=== PATIENT | female | born 1995 | race Caucasian/White ===

== ENCOUNTER 2016-06-20 20:26 | Observation (INO) | payer OTHER ==
[2016-06-20] MEDS ORDERED: Ondansetron 4 MG/2 ML SDV IVPUSH ONE (21:11)
[2016-06-20] MEDS ORDERED: Sodium Chloride 0.9% 1,000 ML IV ONE ×2 (21:11→22:49)
[2016-06-20] MEDS ORDERED: Sodium Chloride 0.9% 2.5 ML Syringe FLUSH PRN (21:12)
[2016-06-20] MEDS ORDERED: Sodium Chloride 0.9% 10 ML Syringe FLUSH PRN (21:12)
[2016-06-20 21:52] LABS: CHLORIDE,CL 105 mmol/L (98-110); SODIUM,NA 141 mmol/L (136-146)
[2016-06-20] MEDS ORDERED: Iopamidol 755 MG/ML 500 ML Multipack Bottle IVPUSH STA (22:35)
[2016-06-20] MEDS ORDERED: HYDROmorphone 1 MG/ML Syringe IV ONE (22:48)
--- NOTE | 2016-06-20 23:40 | EDM.PDOC ---
ED HPI GI/ABDOMINAL - General Chief Complaint: Abdominal Pain Stated Complaint: STOMACH PAIN Time Seen by Provider: 06/20/16 21:52 Source of Information: Reports: Patient History Limitations: Reports: No limitations - History of Present Illness INITIAL COMMENTS - FREE TEXT/NARRATIVE: HISTORY AND PHYSICAL: History of present illness: [21-year-old female not currently and no chronic abdominal problems now presents emergent department complaining of sudden onset of right lower quadrant pain earlier tonight. Review of systems: As per history of present illness and below otherwise all systems reviewed and negative. Past medical history: As per history of present illness and as reviewed below otherwise noncontributory. Surgical history: As per history of present illness and as reviewed below otherwise noncontributory. Social history: No reported history of drug or alcohol abuse. Family history: As per history of present illness and as reviewed below otherwise noncontributory. Physical exam: 21-year-old female smiling alert no acute distress appears in mild discomfort complaining of right lower quadrant pain HEENT: Atraumatic, normocephalic, pupils reactive, negative for conjunctival pallor or scleral icterus, mucous membranes moist, throat clear, neck supple, nontender, trachea midline. Lungs: Clear to auscultation, breath sounds equal bilaterally, chest nontender. Heart: S1S2, regular, negative for clicks, rubs, or JVD. Abdomen: Soft, nondistended, tenderness right lower quadrant no guarding or rebound. Negative for masses or hepatosplenomegaly. Negative for costovertebral tenderness. Pelvis: Stable nontender. Genitourinary: Deferred. Rectal: Deferred. Extremities: Atraumatic, negative for cords or calf pain. Neurovascular unremarkable. Neuro: Awake, alert, oriented. Cranial nerves II through XII unremarkable. Cerebellum unremarkable. Motor and sensory unremarkable throughout. Exam nonfocal. Diagnostics: [CT shows what appears to be hemorrhagic ovarian cyst with right adnexal mass and free fluid in the pelvis. In the setting of a patient who is not no possibility of ectopic] Therapeutics: [IV fluids and analgesia] Impression: [Hemorrhagic ovarian cyst Pelvic pain] Plan: [Non. Right adnexal as cystic structure with free fluid consistent with hemorrhagic ovarian cyst. Hemodynamically stable. Case discussed with Dr. 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 She evaluated the patient in the emergency department and request observation admission to her service to demonstrate hemodynamic stability in the setting of presumed right ovarian cyst with intra-pelvic bleeding. Patient is well-appearing and continues to be hemodynamically stable. Off sterilely admission Definitive disposition and diagnosis as appropriate pending reevaluation and review of above. - Related Data Allergies/ADRs: Allergies Allergy/AdvReac Type Severity Reaction Status Date / Time latex Allergy Other Verified 06/20/16 21:00 pineapple Allergy Swelling Verified 07/24/14 09:34 Home Meds: Home Meds Norgestrel-Ethinyl Estradiol [Cryselle-28 Tablet] 1 tab PO DAILY 07/24/14 [ History] Past Medical History - Past Health History Medical/Surgical History: Denies Medical/Surgical History - Infectious Disease History Infectious Disease History: Reports: Chicken pox - Past Surgical History GI Surgical History: Reports: Cholecystectomy Social & Family History - Family History Family Medical History: Noncontributory - Tobacco Use Smoking Status *Q: Never Smoker Second Hand Smoke Exposure: No - Caffeine Use Caffeine Use: Reports: None - Alcohol Use Days Per Week of Alcohol Use: 0 Number of Drinks Per Day: 0 Total Drinks Per Week: 0 - Recreational Drug Use Recreational Drug Use: No Drug Use in Last 12 Months: No ED ROS GENERAL - Review of Systems Review Of Systems: See Below (History of present illness) ED EXAM, GI/ABD - Physical Exam Exam: See Below (History of present illness) Course - Vital Signs Last Recorded V/S: Last Vital Signs Temp 36.8 C 06/20/16 21:53 Pulse 74 06/20/16 21:53 Resp 18 06/20/16 20:55 BP 124/68 06/20/16 21:53 Pulse Ox 99 06/20/16 20:55 - Orders/Labs/Meds Orders: Active Orders 24 hr Category Date Time Status Admission Status [Patient Status] [ADT] Stat ADT 06/20/16 23:55 Active NPO Now [Nothing per Oral Now Diet] [DIET] Diet 06/20/16 Breakfast Active Abdomen Pelvis w Cont [CT] Stat Exams 06/20/16 21:12 Taken CULTURE URINE [RM] Stat Lab 06/20/16 21:10 Received Sodium Chloride 0.9% [Normal Saline] 1,000 ml Med 06/21/16 00:07 Active IV .Bolus Sodium Chloride 0.9% [Saline Flush] Med 06/20/16 21:12 Active 10 ml FLUSH ASDIRECTED PRN Sodium Chloride 0.9% [Saline Flush] Med 06/20/16 21:12 Active 2.5 ml FLUSH ASDIRECTED PRN Saline Lock Insert [OM.PC] Stat Oth 06/20/16 21:12 Ordered Medication Orders Sodium Chloride (Normal Saline) 1,000 mls @ 150 mls/hr IV .Bolus ONE Stop: 06/21/16 06:46 Sodium Chloride (Saline Flush) 10 ml FLUSH ASDIRECTED PRN PRN Reason: Keep Vein Open Sodium Chloride (Saline Flush) 2.5 ml FLUSH ASDIRECTED PRN PRN Reason: Keep Vein Open Labs: Laboratory Tests 06/20/16 06/20/16 06/20/16 Range/Units 21:10 21:10 21:10 WBC (4.0-11.0) K/uL RBC (4.30-5.90) M/uL Hgb (12.0-16.0) g/dL Hct (36.0-46.0) % MCV (80.0-98.0) fL MCH (27.0-32.0) pg MCHC (31.0-37.0) g/dL RDW Std Deviation (28.0-62.0) fl RDW Coeff of Mega (11.0-15.0) % Plt Count (150-400) K/uL MPV (7.40-12.00) fL Neut % (Auto) (48.0-80.0) % Lymph % (Auto) (16.0-40.0) % [place] % (Auto) (0.0-15.0) % Eos % (Auto) (0.0-7.0) % Baso % (Auto) (0.0-1.5) % Neut # (Auto) (1.4-5.7) K/uL Lymph # (Auto) (0.6-2.4) K/uL [place] # (Auto) (0.0-0.8) K/uL Eos # (Auto) (0.0-0.7) K/uL Baso # (Auto) (0.0-0.1) K/uL Nucleated RBC % /100WBC Nucleated RBCs # K/uL Sodium (136-146) mmol/L Potassium (3.5-5.1) mmol/L Chloride (98-110) mmol/L Carbon Dioxide (21-31) mmol/L BUN (6.0-23.0) mg/dL Creatinine (0.6-1.5) mg/dL Est Cr Clr Drug Dosing mL/min Estimated GFR (MDRD) ml/min Glucose (60-110) mg/dL Calcium (8.8-10.8) mg/dL Total Bilirubin (0.1-1.5) mg/dL AST (5-40) IU/L ALT (8-54) IU/L Alkaline Phosphatase (40-150) Total Protein (6.0-8.0) g/dL Albumin (3.5-5.0) g/dL Globulin (2.0-3.5) g/dL Albumin/Globulin Ratio (1.3-2.8) Lipase (7-80) U/L Urine Color YELLOW Urine Appearance CLEAR Urine pH 6.0 (5.0-8.0) Ur Specific [place] 1.025 (1.001-1.035) Urine Protein NEGATIVE (NEGATIVE) mg/dL Urine Glucose (UA) NEGATIVE (NEGATIVE) mg/dL Urine Ketones NEGATIVE (NEGATIVE) mg/dL Urine Occult Blood NEGATIVE (NEGATIVE) Urine Nitrite NEGATIVE (NEGATIVE) Urine Bilirubin NEGATIVE (NEGATIVE) Urine Urobilinogen 0.2 (<2.0) EU/dL Ur Leukocyte Esterase NEGATIVE (NEGATIVE) Urine RBC 0-1 (0-2/HPF) Urine WBC 0-2 (0-5/HPF) Ur Epithelial Cells FEW (NONE-FEW) Urine Bacteria FEW (NEGATIVE) Urine HCG, Qual NEGATIVE (NEGATIVE) Urine Opiates Screen NEGATIVE (NEGATIVE) Ur Oxycodone Screen NEGATIVE (NEGATIVE) Urine Methadone Screen NEGATIVE (NEGATIVE) Ur Barbiturates Screen NEGATIVE (NEGATIVE) Ur Phencyclidine Scrn NEGATIVE (NEGATIVE) Ur Amphetamine Screen NEGATIVE (NEGATIVE) U Methamphetamines Scrn NEGATIVE (NEGATIVE) U Benzodiazepines Scrn NEGATIVE (NEGATIVE) U Cocaine Metab Screen NEGATIVE (NEGATIVE) U Marijuana (THC) Screen NEGATIVE (NEGATIVE) 06/20/16 06/20/16 Range/Units 21:15 21:15 WBC 11.35 H (4.0-11.0) K/uL RBC 4.85 (4.30-5.90) M/uL Hgb 13.9 (12.0-16.0) g/dL Hct 41.2 (36.0-46.0) % MCV 84.9 (80.0-98.0) fL MCH 28.7 (27.0-32.0) pg MCHC 33.7 (31.0-37.0) g/dL RDW Std Deviation 38.7 (28.0-62.0) fl RDW Coeff of Mega 13 (11.0-15.0) % Plt Count 300 (150-400) K/uL MPV 9.40 (7.40-12.00) fL Neut % (Auto) 70.8 (48.0-80.0) % Lymph % (Auto) 22.4 (16.0-40.0) % [place] % (Auto) 5.6 (0.0-15.0) % Eos % (Auto) 1.0 (0.0-7.0) % Baso % (Auto) 0.2 (0.0-1.5) % Neut # (Auto) 8.0 H (1.4-5.7) K/uL Lymph # (Auto) 2.5 H (0.6-2.4) K/uL [place] # (Auto) 0.6 (0.0-0.8) K/uL Eos # (Auto) 0.1 (0.0-0.7) K/uL Baso # (Auto) 0.0 (0.0-0.1) K/uL Nucleated RBC % 0.0 /100WBC Nucleated RBCs # 0 K/uL Sodium 141 (136-146) mmol/L Potassium 3.9 (3.5-5.1) mmol/L Chloride 105 (98-110) mmol/L Carbon Dioxide 23 (21-31) mmol/L BUN 12 (6.0-23.0) mg/dL Creatinine 0.8 (0.6-1.5) mg/dL Est Cr Clr Drug Dosing 105.01 mL/min Estimated GFR (MDRD) > 60.0 ml/min Glucose 100 (60-110) mg/dL Calcium 9.7 (8.8-10.8) mg/dL Total Bilirubin 0.4 (0.1-1.5) mg/dL AST 17 (5-40) IU/L ALT 19 (8-54) IU/L Alkaline Phosphatase 47 (40-150) Total Protein 7.7 (6.0-8.0) g/dL Albumin 4.2 (3.5-5.0) g/dL Globulin 3.5 (2.0-3.5) g/dL Albumin/Globulin Ratio 1.2 L (1.3-2.8) Lipase 39 (7-80) U/L Urine Color Urine Appearance Urine pH (5.0-8.0) Ur Specific [place] (1.001-1.035) Urine Protein (NEGATIVE) mg/dL Urine Glucose (UA) (NEGATIVE) mg/dL Urine Ketones (NEGATIVE) mg/dL Urine Occult Blood (NEGATIVE) Urine Nitrite (NEGATIVE) Urine Bilirubin (NEGATIVE) Urine Urobilinogen (<2.0) EU/dL Ur Leukocyte Esterase (NEGATIVE) Urine RBC (0-2/HPF) Urine WBC (0-5/HPF) Ur Epithelial Cells (NONE-FEW) Urine Bacteria (NEGATIVE) Urine HCG, Qual (NEGATIVE) Urine Opiates Screen (NEGATIVE) Ur Oxycodone Screen (NEGATIVE) Urine Methadone Screen (NEGATIVE) Ur Barbiturates Screen (NEGATIVE) Ur Phencyclidine Scrn (NEGATIVE) Ur Amphetamine Screen (NEGATIVE) U Methamphetamines Scrn (NEGATIVE) U Benzodiazepines Scrn (NEGATIVE) U Cocaine Metab Screen (NEGATIVE) U Marijuana (THC) Screen (NEGATIVE) Meds: Medications Generic Name Dose Route Start Last Admin Trade Name Freq PRN Reason Stop Dose Admin Sodium Chloride 1,000 mls @ 150 mls/hr 06/21/16 00:07 Normal Saline IV 06/21/16 06:46 .Bolus ONE Sodium Chloride 10 ml 06/20/16 21:12 Saline Flush FLUSH ASDIRECTED PRN Keep Vein Open Sodium Chloride 2.5 ml 06/20/16 21:12 Saline Flush FLUSH ASDIRECTED PRN Keep Vein Open Discontinued Medications Generic Name Dose Route Start Last Admin Trade Name Freq PRN Reason Stop Dose Admin Hydromorphone HCl 0.5 mg 06/20/16 22:48 06/20/16 22:53 Dilaudid IV 06/20/16 22:49 0.5 mg ONETIME ONE Administration Sodium Chloride 1,000 mls @ 999 mls/hr 06/20/16 21:11 06/20/16 21:29 Normal Saline IV 06/20/16 22:11 999 mls/hr STAT ONE Administration Sodium Chloride 1,000 mls @ 999 mls/hr 06/20/16 22:49 06/20/16 22:51 Normal Saline IV 06/20/16 23:49 999 mls/hr STAT ONE Administration Iopamidol 90 ml 06/20/16 22:35 06/20/16 22:36 Isovue Multipack-370 (76%) IVPUSH 06/20/16 22:36 90 ml ONETIME STA Administration Ondansetron HCl 4 mg 06/20/16 21:11 06/20/16 21:29 Zofran IVPUSH 06/20/16 21:12 4 mg ONETIME ONE Administration Departure - Departure Time of Disposition: 23:51 Disposition: Refer to Observation Condition: fair Clinical Impression: Hemorrhagic cyst of right ovary Referrals: PCP,None [Primary Care Provider] - Forms: ED Department Discharge - My Orders Last 24 Hours: My Active Orders 06/20/16 23:55 Admission Status [Patient Status] [ADT] Stat 06/20/16 Breakfast NPO Now [Nothing per Oral Now Diet] [DIET] 06/21/16 00:07 Sodium Chloride 0.9% [Normal Saline] 1,000 ml IV .Bolus - Assessment/Plan Last 24 Hours: My Active Orders 06/20/16 23:55 Admission Status [Patient Status] [ADT] Stat 06/20/16 Breakfast NPO Now [Nothing per Oral Now Diet] [DIET] 06/21/16 00:07 Sodium Chloride 0.9% [Normal Saline] 1,000 ml IV .Bolus
[2016-06-21] MEDS ORDERED: Sodium Chloride 0.9% 1,000 ML IV ONE (00:07)
[2016-06-21] MEDS: Acetaminophen/oxyCODONE 325-5 MG Tab PO PRN ×2 (02:12→07:39)
[2016-06-21] MEDS ORDERED: HYDROmorphone 1 MG/ML Syringe IVPUSH PRN (02:45)
[2016-06-21] MEDS ORDERED: Ibuprofen 800 MG Tab PO PRN (02:46)
[2016-06-21] MEDS ORDERED: Ondansetron 4 MG/2 ML SDV IVPUSH PRN (02:47)
[2016-06-21] MEDS ORDERED: Lactated Ringers 1,000 ML IV SCH (04:45)
--- NOTE | 2016-06-21 05:45 | HP ---
DATE OF : 1995 PRIMARY CARE PHYSICIAN: Kristi PCP PRESENTING COMPLAINT: Right lower abdominal pain. HISTORY: Cl is a 21-year-old, nulliparous patient who presented to the ER late last night complaining of sudden onset right lower quadrant pain at about 6:00 p.m in the evening. She reports that the pain was so severe that it made her double over, nauseated with an episode of vomiting. The pain remained constant with similar intensity, non- radiating aggravated with movement, which necessitating her presentation to the ER. She denied vaginal bleeding, abnormal vaginal discharge. Denied fever or chills. No associated urinary symptoms or change in bowel habits. The patient gets a period every three months on extended cycle OCP, her last menstrual period was at the end of May. In the ER, her urine Hcg was negative. She received a dose of Dilaudid 0.5 mg and then had a CT abdominopelvic, which showed 4.3cm cystic lesion in the right adnexa with small to moderate amount of free fluid in the cul-de-sac. The densities within the fluid were suggestive of blood and the appearance of this cystic lesion was suggestive of hemorrhagic cyst, possibly ruptured. GYNECOLOGICAL HISTORY: Cycles every three months on extended cycle pill. Sexually active No history of STDs. PAST MEDICAL HISTORY: Chickenpox in childhood SURGICAL HISTORY: Cholecystectomy, laparoscopic in 2015. SOCIAL HISTORY: Student, nonsmoker, denies use of illicit drugs or alcohol intake. FAMILY HISTORY: Mother with Crohn disease. MEDICATION: OCP. ALLERGY: Latex. Pineapple LABORATORY DATA: WBC of 11.3, hemoglobin of 13.9 and hematocrit of 41.2. Platelets were 300. CMP was normal. Urinalysis was negative. Urine Hcg : Negative PHYSICAL EXAMINATION: GENERAL: Patient was alert, no acute distress bu appears to be in some discomfort especially with movement. LUNGS: Clear to auscultation bilaterally. HEART: S 1 and 2, regular rhythm and rate. ABDOMEN: Soft, nondistended, tenderness on the right lower quadrant with voluntary guarding, but no rebound tenderness. No masses were palpable. : Speculum exam showed no abnormal vaginal discharge and bleeding. Bimanual: Mobile anteverted non-tender uterus less than six weeks size, but with movement patient complains of right-sided tenderness. No cervical motion tenderness. Fullness in the right adnexa with tenderness palpable. EXTREMITIES: No edema. ASSESSMENT: 21 yo non- patient with ruptured right hemorrhagic ovarian cyst. Clinically hemodynamically stable PLAN: We will keep the patient in-house for observation overnight. - Pelvic ultrasound tomorrow morning and repeat CBC. - Keep n.p.o. continue pain management and IVF. If the patient remains hemodynamically stable, we will plan discharge on conservative management. Discussed above management with the patient and family. All questions were answered. [place]ODROW / ZAKI /[id number] ZUHAIR
[2016-06-21 09:16] VITALS: BP 113/62
--- NOTE | 2016-06-21 11:24 | PCM.PN ---
- General Info Date of Service: 06/21/16 Functional Status: Reports: pain controlled, ambulating, urinating - Review of Systems General: Denies: Fever, Weakness, Fatigue, Malaise, Chills Pulmonary: Denies: shortness of breath, pleuritic chest pain, cough Cardiovascular: Denies: Chest Pain, Palpitations, Dyspnea on Exertion Gastrointestinal: Denies: Abdominal pain Genitourinary: Denies: dysuria, frequency, flank pain Neurological: Denies: Confusion, Headache Psychiatric: Denies: depression, mood lability, anxiety - Patient Data Vitals - most recent: Last Vital Signs Temp 36.6 C 06/21/16 08:00 Pulse 86 06/21/16 08:00 Resp 16 06/21/16 08:00 BP 113/62 06/21/16 08:00 Pulse Ox 97 06/21/16 08:00 Weight - most recent: 167 lb 8 oz I&O - last 24 hours: Intake & Output 06/20/16 06/21/16 06/21/16 22:59 06:59 14:59 Intake Total 20 Output Total 500 Balance -480 Lab Results last 24 hrs: Laboratory Results - last 24 hr 06/21/16 Range/Units 05:55 WBC 7.59 (4.0-11.0) K/uL RBC 4.26 L (4.30-5.90) M/uL Hgb 12.2 (12.0-16.0) g/dL Hct 36.4 (36.0-46.0) % MCV 85.4 (80.0-98.0) fL MCH 28.6 (27.0-32.0) pg MCHC 33.5 (31.0-37.0) g/dL RDW Std Deviation 39.2 (28.0-62.0) fl RDW Coeff of Mega 13 (11.0-15.0) % Plt Count 229 (150-400) K/uL MPV 9.30 (7.40-12.00) fL Neut % (Auto) 60.6 (48.0-80.0) % Lymph % (Auto) 32.1 (16.0-40.0) % [place] % (Auto) 6.1 (0.0-15.0) % Eos % (Auto) 1.1 (0.0-7.0) % Baso % (Auto) 0.1 (0.0-1.5) % Neut # (Auto) 4.6 (1.4-5.7) K/uL Lymph # (Auto) 2.4 (0.6-2.4) K/uL [place] # (Auto) 0.5 (0.0-0.8) K/uL Eos # (Auto) 0.1 (0.0-0.7) K/uL Baso # (Auto) 0.0 (0.0-0.1) K/uL Nucleated RBC % 0.0 /100WBC Nucleated RBCs # 0 K/uL Med Orders - Current: Current Medications Hydromorphone HCl (Dilaudid) 0.5 mg IVPUSH Q2H PRN PRN Reason: Pain (severe 7-10) Lactated Ringer's (Ringers, Lactated) 1,000 mls @ 125 mls/hr IV ASDIRECTED CELESTE Last Admin: 06/21/16 07:18 Dose: 125 mls/hr Ibuprofen (Motrin) 800 mg PO Q6H PRN PRN Reason: Abdominal Pain Ondansetron HCl (Zofran) 4 mg IVPUSH Q6H PRN PRN Reason: Nausea/Vomiting Oxycodone/Acetaminophen (Percocet 325-5 Mg) 1 - 2 tab PO Q4H PRN PRN Reason: Pain Last Admin: 06/21/16 07:39 Dose: 2 tab Sodium Chloride (Saline Flush) 10 ml FLUSH ASDIRECTED PRN PRN Reason: Keep Vein Open Sodium Chloride (Saline Flush) 2.5 ml FLUSH ASDIRECTED PRN PRN Reason: Keep Vein Open Discontinued Medications Hydromorphone HCl (Dilaudid) 0.5 mg IV ONETIME ONE Stop: 06/20/16 22:49 Last Admin: 06/20/16 22:53 Dose: 0.5 mg Sodium Chloride (Normal Saline) 1,000 mls @ 999 mls/hr IV STAT ONE Stop: 06/20/16 22:11 Last Admin: 06/20/16 21:29 Dose: 999 mls/hr Sodium Chloride (Normal Saline) 1,000 mls @ 999 mls/hr IV STAT ONE Stop: 06/20/16 23:49 Last Admin: 06/20/16 22:51 Dose: 999 mls/hr Sodium Chloride (Normal Saline) 1,000 mls @ 150 mls/hr IV .Bolus ONE Stop: 06/21/16 06:46 Last Admin: 06/21/16 00:20 Dose: 150 mls/hr Iopamidol (Isovue Multipack-370 (76%)) 90 ml IVPUSH ONETIME STA Stop: 06/20/16 22:36 Last Admin: 06/20/16 22:36 Dose: 90 ml Ondansetron HCl (Zofran) 4 mg IVPUSH ONETIME ONE Stop: 06/20/16 21:12 Last Admin: 06/20/16 21:29 Dose: 4 mg - Exam General: alert, oriented, no acute distress HEENT: Pupils equal Lungs: Clear to auscultation, Normal respiratory effort Cardiovascular: Regular Rate, Regular Rhythm Abdomen: soft, no tenderness, no distension Extremities: no edema Skin: warm Psy/Mental Status: alert, normal affect, normal mood - Problem List & Annotations (1) Hemorrhagic cyst of right ovary SNOMED Code(s): 084957724 Code(s): N83.201 - UNSPECIFIED OVARIAN CYST, RIGHT SIDE Status: Acute Current Visit: Yes - Problem List Review Problem List Initiated/Reviewed/Updated: Yes - My Orders Last 24 Hours: My Active Orders 06/21/16 01:45 Acetaminophen/oxyCODONE [Percocet 325-5 MG] 1 - 2 tab PO Q4H PRN 06/21/16 01:55 CHLAMYDIA TRACHOMATIS/GC AMPLF Routine CULTURE GENITAL [RM] Routine 06/21/16 02:35 Pelvis Non OB Comp [US] Routine 06/21/16 02:45 HYDROmorphone [Dilaudid] 0.5 mg IVPUSH Q2H PRN 06/21/16 02:46 Ibuprofen [Motrin] 800 mg PO Q6H PRN 06/21/16 02:47 Ondansetron [Zofran] 4 mg IVPUSH Q6H PRN 06/21/16 04:45 Lactated Ringers [Ringers, Lactated] 1,000 ml IV ASDIRECTED 06/21/16 Breakfast NPO [Nothing Per Oral Diet] [DIET] - Assessment Assessment:: HD#1 admitted overnight for observation secondary to ruptured right hemorrhagic cyst Patient is feeling much better and remains hemodynamically stable, currently painfree (last PO nacortics was at 7am). WBC normal and Hgb stable at 12g/dl Pelvic sonogram showed a complex 3cm right ovarian cyst with small to moderate free fluid in the right adnexa. Apart from the cyst measurement being small, there is no significant change from CT scan - Plan Plan:: Sonogram findings reviewed with patient and her parents. Explained pathophysiology of ovarian cyst and resultant rupture Patient is clinically stable for discharge with pain medications Will need follow up sonogram in about 6 weeks (to check for resolution) except clinically indicated at her followup with me within the week Activities, pelvic rest, pain and infection precautions reviewed with patient Will follow up next week in the clinic- office will jonnathan her on Thursday with this appointment
--- NOTE | 2016-06-23 16:07 | CT ---
EXAM DATE: 06/20/16 PATIENT'S AGE: 21 Patient: ANDREY ROGERS Facility: [place], [place] Site . Site : 1995 Study: CT Abdomen/Pelvis W CONT [id number]/[id number] 10:37:06 PM Ordering Physician: Doctor Garcia Final Report: INDICATION: Abdominal pain in the right lower abdomen TECHNIQUE: CT abdomen and pelvis acquired with i.v. 90 mL Isovue 370. Coronal and sagittal reformats were obtained. COMPARISON: None FINDINGS: Lower chest: Unremarkable. Liver: Unremarkable. Spleen: Unremarkable. Pancreas: Unremarkable. Gallbladder and bile ducts: The patient is status post cholecystectomy. Kidneys: Unremarkable. No kidney or ureteral stones and no hydronephrosis seen. Adrenal glands: Unremarkable. GI tract: Unremarkable. The appendix is normal in appearance and size. And is seen retrocecal on images 93- 77. Vascular: Unremarkable. Lymph nodes: Unremarkable. Miscellaneous: Unremarkable. No pneumoperitoneum is seen. Small to moderate amount of pelvic ascites is noted. Ascites measures approximately 15 HU in density with the dependent aspect in the cul-de-sac measuring 36 HU. Pelvic Organs: There is a cystic lesion in the right adnexa measuring 4.3 cm in diameter. Bones: Unremarkable for age. IMPRESSION: 1. Large cystic lesion seen in the right adnexa with a small to moderate amount of pelvic fluid seen. The fluid has layering densities in the cul-de-sac which may be due to hemoperitoneum. Findings maybe due to hemorrhage from an ovarian cyst but correlation with beta HCG is recommended to exclude a ruptured ectopic . A copy of this report was faxed to the patient`s physician at the time of dictation. Dictated by Frandy Vega MD @ 06/20/2016 11:00:04 PM Dictated by: Frandy Vega MD @ 06/20/2016 23:00:25 (Electronic Signature) Report Signed by Proxy. ZUHAIR
--- NOTE | 2016-06-23 16:17 | US ---
EXAM DATE: 06/20/16 PATIENT'S AGE: 21 Patient: ANDREY ROGERS Facility: [place], [place] Site . Site : 1995 Study: US Pelvis [id number]/6/2017 4:14:49 AM Ordering Physician: Bekah Vazquez Final Report: INDICATION: Right lower quadrant pain. Negative beta HCG TECHNIQUE: Ultrasound pelvis transvaginal. COMPARISON: CT scan abdomen pelvis 06/20/2016. FINDINGS: Uterus: 7.0 centimeters x 3.6 centimeters x 4.2 centimeters. Normal echotexture of the myometrium. No masses. Endometrium: The endometrium measures 7 mm in thickness. No sign of endometrial mass or fluid. Right ovary: 4.7 centimeters x 5.0 centimeters x 5.4 centimeters. 3.0 centimeter complex right ovarian cyst. Normal arterial and venous blood flow. Left ovary: Not visualized. Cul-de-sac: Small a moderate amount of free fluid in the right adnexa possibly complex. IMPRESSION: A 3.0 centimeter complex right ovarian cyst with small amount of adjacent fluid possibly complex fluid. Followup recommended. Dictated by Zac Mathias MD @ 06/21/2016 4:30:21 AM Dictated by: Zac Mathias MD @ 06/21/2016 04:30:42 (Electronic Signature) Report Signed by Proxy. ZUHAIR
== END 2016-06-21 13:20 | disposition home or self-care (01) ==
LOC: MW.ED 20:26 → MW.MS 23:55 → UNDODISOB 06-21 03:13
PROVIDERS: ADMIT Obstetrics & Gynecology; ATTEND Obstetrics & Gynecology
DX: N83.201 Unspecified ovarian cyst, right side (principal); Z90.49 Acquired absence of other specified parts of digestive tract; Z91.018 Allergy to other foods; Z91.040 Latex allergy status
CPT/HCPCS: 36415; 74177; 76856; 80053; 80305; 81001; 81025; 83690; 85025; 87070; 87086; 87491; 87591; 96361; 96374; 96375; 99285; A9270; G0378; J1170; J2405; J7040; J7120; Q9967; 99283

== ENCOUNTER 2016-11-15 17:55 | Emergency (ER) | payer OTHER ==
[2016-11-15 18:26] VITALS: BP 126/76
--- NOTE | 2016-11-15 18:53 | EDM.PDOC ---
ED HPI GENERAL MEDICAL PROBLEM - General Chief Complaint: Eye Problems Stated Complaint: POSSIBLE PINK EYE/STREP THROAT Time Seen by Provider: 11/15/16 18:16 Source of Information: Reports: Patient History Limitations: Reports: No Limitations - History of Present Illness INITIAL COMMENTS - FREE TEXT/NARRATIVE: HISTORY AND PHYSICAL: History of present illness: Patient is a 21-year-old female who presents to the emergency room with complaints of sore throat 4 days and 24 hours of drainage to the right eye. Reports that her throat is been bothering her for approximately 4 days which has not improved regardless of using [id number] products. Patient noted that she had yellow/green drainage starting from her eye started a woke up with it matted shut. Denies any fever or chills. Denies any nausea, vomiting, abdominal pain, chest pain or shortness of breath. Review of systems: As per history of present illness and below otherwise all systems reviewed and negative. Past medical history: As per history of present illness and as reviewed below otherwise noncontributory. Surgical history: As per history of present illness and as reviewed below otherwise noncontributory. Social history: No reported history of drug or alcohol abuse. Family history: As per history of present illness and as reviewed below otherwise noncontributory. Physical exam: Gen.: Nontoxic appearing 21-year-old female. Well-developed and well-nourished. Able to speak in full sentences without shortness of breath. Alert and oriented HEENT: Atraumatic, normocephalic, pupils reactive, negative for conjunctival pallor or scleral icterus, scleral injection of the right with yellow discharge noted, mucous membranes moist, throat clear, neck supple, nontender, trachea midline. Right tympanic membrane is erythematous with dull light reflex. No bulging noted. Left TM is normal. Lungs: Clear to auscultation, breath sounds equal bilaterally, chest nontender. Heart: S1S2, regular rate and rhythm Abdomen: Soft, nondistended, nontender. Negative for masses or hepatosplenomegaly. Negative for costovertebral tenderness. Pelvis: Stable nontender. Genitourinary: Deferred. Rectal: Deferred. Extremities: Atraumatic, negative for cords or calf pain. Neurovascular unremarkable. Neuro: Awake, alert, oriented. Cranial nerves II through XII unremarkable. Cerebellum unremarkable. Motor and sensory unremarkable throughout. Exam nonfocal. Diagnostics: [] Therapeutics: [] Impression: Otitis media, right Bacterial conjunctivitis, right Plan: 1. Please take the antibiotics as prescribed. Perform good handwashing as we discussed. 2. An antibiotic have been prescribed for you for the otitis media which will also cover the pharyngitis. Take Tylenol and/or ibuprofen for pain and fever control. Please perform the salt water gargles that we discussed. 3. Follow-up with your primary care provider in the next 1-2 days. Return to the ED as needed as discussed Definitive disposition and diagnosis as appropriate pending reevaluation and review of above. Onset: Today right eye Pain Score (Numeric/FACES): 3 throat Pain Score (Numeric/FACES): 4 - Related Data Allergies Allergy/AdvReac Type Severity Reaction Status Date / Time pineapple Allergy Swelling Verified 11/15/16 18:21 Home Meds: Home Meds . [No Known Home Meds] 11/15/16 [History] Past Medical History - Past Health History Medical/Surgical History: Denies Medical/Surgical History - Infectious Disease History Infectious Disease History: Reports: Chicken Pox - Past Surgical History GI Surgical History: Reports: Cholecystectomy Social & Family History - Family History Family Medical History: Noncontributory Cardiac: Reports: High Cholesterol Endocrine/Metabolic: Reports: Diabetes, type II - Tobacco Use Smoking Status *Q: Never Smoker Second Hand Smoke Exposure: No - Caffeine Use Caffeine Use: Reports: None - Alcohol Use Days Per Week of Alcohol Use: 0 Number of Drinks Per Day: 0 Total Drinks Per Week: 0 - Recreational Drug Use Recreational Drug Use: No Drug Use in Last 12 Months: No ED ROS GENERAL - Review of Systems Review Of Systems: ROS reveals no pertinent complaints other than HPI. ED EXAM GENERAL W FULL EYE - Physical Exam Exam: See Below (See dictation) Course - Vital Signs Last Recorded V/S: Last Vital Signs Temp 36.6 C 11/15/16 17:55 Pulse 98 11/15/16 17:55 Resp 18 11/15/16 17:55 BP 126/76 11/15/16 17:55 Pulse Ox 98 11/15/16 17:55 Departure - Departure Time of Disposition: 18:53 Disposition: Home, Self-Care 01 Clinical Impression: Conjunctivitis Qualifiers: Conjunctivitis type: acute Acute conjunctivitis type: bacterial Laterality: right Qualified Code(s): H10.31 - Unspecified acute conjunctivitis, right eye Otitis media Qualifiers: Otitis media type: unspecified Chronicity: unspecified Laterality: right Qualified Code(s): H66.91 - Otitis media, unspecified, right ear - Discharge Information Referrals: PCP,None [Primary Care Provider] - Additional Instructions: My general discharge The following information is given to patients seen in the emergency department who are being discharged to home. This information is to outline your options for follow-up care. We provide all patients seen in our emergency department with a follow-up referral. The need for follow-up, as well as the timing and circumstances, are variable depending upon the specifics of your emergency department visit. If you don't have a primary care physician on staff, we will provide you with a referral. We always advise you to contact your personal physician following an emergency department visit to inform them of the circumstance of the visit and for follow-up with them and/or the need for any referrals to a consulting specialist. The emergency department will also refer you to a specialist when appropriate. This referral assures that you have the opportunity for follow-up care with a specialist. All of these measure are taken in an effort to provide you with optimal care, which includes your follow-up. Under all circumstances we always encourage you to contact your private physician who remains a resource for coordinating your care. When calling for follow-up care, please make the office aware that this follow-up is from your recent emergency room visit. If for any reason you are refused follow-up, please contact the [facility] Emergency Department at and asked to speak to the emergency department charge nurse. [facility] [address] [place] [id number] 1. Please take the eye antibiotics as prescribed. Perform good handwashing as we discussed. 2. An oral antibiotic have been prescribed for you for the otitis media which will also cover the pharyngitis. Take Tylenol and/or ibuprofen for pain and fever control. Please perform the salt water gargles that we discussed. 3. Follow-up with your primary care provider in the next 1-2 days. Return to the ED as needed as discussed
== END 2016-11-15 19:05 | disposition home or self-care (01) ==
LOC: MW.ED 17:55
DX: H66.91 Otitis media, unspecified, right ear (principal); H10.31 Unspecified acute conjunctivitis, right eye
CPT/HCPCS: 99282

== ENCOUNTER 2021-02-18 11:19 | Emergency (ER) | payer SELFPAY ==
[2021-02-18 13:42] LABS: BLOOD UREA NITROGEN,BUN 14 mg/dL (7.0-18.0); CARBON DIOXIDE,CO2 25.8 mmol/L (21.0-32.0); CHLORIDE,CL 104 mmol/L (98-107); GLUCOSE RANDOM 103 mg/dL (74-106); POTASSIUM,K 3.6 mmol/L (3.5-5.1); SODIUM,NA 141 mmol/L (136-145)
--- NOTE | 2021-02-18 14:12 | US ---
INDICATION: with bleeding. TECHNIQUE: Ultrasound OB pelvis transabdominal and transvaginal. Real-time shea-scale imaging of the pelvis was performed. COMPARISON: None. FINDINGS: No sign of intrauterine or ectopic . Endometrium is empty. The ovaries are of normal size. There are no suspicious fluid collections noted in the cul-de-sac. IMPRESSION: Unremarkable pelvic ultrasound. No signs of . Dictated by Ever Mann MD @ 02/18/2021 2:10:16 PM (Electronically Signed)
--- NOTE | 2021-02-18 14:17 | EDM.PDOC ---
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 Patient states that she has never been before and last had her menstrual cycle at the end of December. Patient states she had a positive test on Thursday. Patient states that she began spotting yesterday and states that she has passed a few clots today. Patient states that she is not bleeding through any padding and is having some lower abdominal discomfort as well. Patient states that she has not yet seen a women's health care provider but plans to see [facility]eredith as this is where she has had her [employer] care in the past. Patient denies any other resuscitative symptoms. Patient denies fever, chills, chest pain, shortness of breath, or cough. Denies headache, neck stiff ness, change in vision, syncope, or near syncope. Denies nausea, vomiting, diarrhea, constipation, or dysuria. Has not noted any blood in urine or stool. Patient has been eating and drinking appropriately. Review of systems: As per history of present illness and below otherwise all systems reviewed and negative. Past medical history: As per history of present illness and as reviewed below otherwise noncontributory. Surgical history: As per history of present illness and as reviewed below otherwise noncontributory. Social history: See social history for further information Family history: As per history of present illness and as reviewed below otherwise noncontributory. Physical exam: General: Patient is alert, oriented, and in no acute distress. Patient sitting comfortably on exam table. Vitals stable and reviewed by me HEENT: Atraumatic, normocephalic, pupils equal and reactive bilaterally, negative for conjunctival pallor or scleral icterus, mucous membranes moist, throat clear, neck supple, nontender, trachea midline. No drooling or trismus noted. No meningeal signs. No hot potato voice noted. Lungs: Clear to auscultation, breath sounds equal bilaterally, chest nontender. Heart: S1S2, regular rate and rhythm without overt murmur Abdomen: Soft, nondistended, nontender. Negative for masses or hepatosplenomegaly. Negative for costovertebral tenderness. Pelvis: Stable nontender. Genitourinary: Publishing Specialist at bedside Talia Cerda PA-C. External genitalia grossly unremarkable. There is a small to moderate amount of bleeding in the vaginal vault with some small clots noted. Bleeding noted, from the cervical os. Cervical os is closed. Uterus is nontender. Negative cervical tenderness. Rectal: Deferred. Skin: Intact, warm, dry. No lesions or rashes noted. Extremities: Atraumatic, negative for cords or calf pain. Neurovascular unremarkable. Neuro: Awake, alert, oriented. Cranial nerves II through XII unremarkable. Cerebellum unremarkable. Motor and sensory unremarkable throughout. Exam nonfocal. Medical Decision Making: Patient is a 25-year-old female who presents emergency room today with concern of vaginal bleeding in early with unknown dating and some lower abdominal discomfort. Upon arrival to the ED, patient is vitally stable and well-appearing on exam. Exam does note that patient is having a mild to moderate amount of bleeding from the cervical os with a small amount of clotting, remainder of exam is unremarkable. Will obtain lab work, hCG quant/Rh and blood type and transvaginal ultrasound. CBC unremarkable. CMP unremarkable. hCG quant is 17. Urinalysis does show 50 red blood cells is otherwise negative. Patient is having vaginal bleeding likely source of red blood cells. Patient's blood type is B+ she does not require RhoGam. Transvaginal ultrasound is unremarkable with no signs of . Upon reevaluation of patient, she remains vitally stable and comfortable throughout stay in ED. I did discuss the need for repeat hCG quant in 42 to 72 hours with her [employer] provider. Strict return precautions thoroughly discussed with patient. Diagnostics: CBC, CMP, hCG quant, Rh/blood type, transvaginal ultrasound Therapeutics: None Prescription: None Impression: Abnormal uterine bleeding Positive Plan: 1. Please start and/or continue to take your vitamin with folic acid once daily. 2. Pelvic rest until cleared by your OBGYN (no tampons, sex, etc...) 3. Tylenol as needed for pain management. This is safe to use in . 4. 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 Return to the ED as needed and as discussed. Definitive disposition and diagnosis as appropriate pending reevaluation and review of above. Abdomen Pain Score (Numeric/FACES): 3 - Related Data Allergies Allergy/AdvReac Type Severity Reaction Status Date / Time pineapple Allergy Swelling Verified 02/18/21 11:55 Home Meds: Home Meds . 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: Reports: None Musculoskeletal History: Reports: None Neurological History: Reports: None Psychiatric History: Reports: None Endocrine/Metabolic History: Reports: None Hematologic History: Reports: None Oncologic (Cancer) History: Reports: None Dermatologic History: Reports: None - Infectious Disease History Infectious Disease History: Reports: Chicken Pox - Past Surgical History Head Surgeries/Procedures: Reports: None Cardiovascular Surgical History: Reports: None GI Surgical History: Reports: Cholecystectomy Social & Family History - Family History Family Medical History: No Pertinent Family History Cardiac: Reports: High Cholesterol Endocrine/Metabolic: Reports: Diabetes, type II - Caffeine Use Caffeine Use: Reports: Coffee - Recreational Drug Use Recreational Drug Use: No ED ROS GENERAL - Review of Systems Review Of Systems: Comprehensive ROS is negative, except as noted in HPI. ED EXAM, GENERAL - Physical Exam Exam: See Below (see dictation) Course - Vital Signs Last Recorded V/S: Last Vital Signs Temp 99.6 F 02/18/21 11:55 Pulse 78 02/18/21 14:46 Resp 18 02/18/21 11:55 BP 153/89 H 02/18/21 14:46 Pulse Ox 95 02/18/21 14:46 - Orders/Labs/Meds Labs: Laboratory Tests 02/18/21 02/18/21 02/18/21 Range/Units 12:21 12:21 12:21 WBC 5.41 (4.0-11.0) K/uL RBC 5.09 (4.30-5.90) M/uL Hgb 14.8 (12.0-16.0) g/dL Hct 42.8 (36.0-46.0) % MCV 84.1 (80.0-98.0) fL MCH 29.1 (27.0-32.0) pg MCHC 34.6 (31.0-37.0) g/dL RDW Std Deviation 38.1 (28.0-62.0) fl RDW Coeff of Mega 13 (11.0-15.0) % Plt Count 344 (150-400) K/uL MPV 9.30 (7.40-12.00) fL Neut % (Auto) 76.3 (48.0-80.0) % Lymph % (Auto) 18.1 (16.0-40.0) % Murray % (Auto) 5.2 (0.0-15.0) % Eos % (Auto) 0.2 (0.0-7.0) % Baso % (Auto) 0.2 (0.0-1.5) % Neut # (Auto) 4.1 (1.4-5.7) K/uL Lymph # (Auto) 1.0 (0.6-2.4) K/uL Murray # (Auto) 0.3 (0.0-0.8) K/uL Eos # (Auto) 0.0 (0.0-0.7) K/uL Baso # (Auto) 0.0 (0.0-0.1) K/uL Nucleated RBC % 0.0 /100WBC Nucleated RBCs # 0 K/uL Sodium 141 (136-145) mmol/L Potassium 3.6 (3.5-5.1) mmol/L Chloride 104 (98-107) mmol/L Carbon Dioxide 25.8 (21.0-32.0) mmol/L BUN 14 (7.0-18.0) mg/dL Creatinine 0.9 (0.6-1.0) mg/dL Est Cr Clr Drug Dosing 90.23 mL/min Estimated GFR (MDRD) > 60.0 ml/min Glucose 103 (74-106) mg/dL Calcium 9.4 (8.5-10.1) mg/dL Total Bilirubin 0.6 (0.2-1.0) mg/dL AST 18 (15-37) IU/L ALT 32 (14-63) IU/L Alkaline Phosphatase 56 (46-116) U/L Total Protein 8.2 (6.4-8.2) g/dL Albumin 4.2 (3.4-5.0) g/dL Globulin 4.0 (2.6-4.0) g/dL Albumin/Globulin Ratio 1.0 (0.9-1.6) HCG, Quant 17.0 mIU/mL Urine Color Urine Appearance Urine pH (5.0-8.0) Ur Specific Lancaster (1.001-1.035) Urine Protein (NEGATIVE) mg/dL Urine Glucose (UA) (NEGATIVE) mg/dL Urine Ketones (NEGATIVE) mg/dL Urine Occult Blood (NEGATIVE) Urine Nitrite (NEGATIVE) Urine Bilirubin (NEGATIVE) Urine Urobilinogen (<2.0) EU/dL Ur Leukocyte Esterase (NEGATIVE) Urine RBC (0-2/HPF) Urine WBC (0-5/HPF) Ur Epithelial Cells (NONE-FEW) Urine Bacteria (NEGATIVE) Blood Type B POSITIVE 02/18/21 Range/Units 12:25 WBC (4.0-11.0) K/uL RBC (4.30-5.90) M/uL Hgb (12.0-16.0) g/dL Hct (36.0-46.0) % MCV (80.0-98.0) fL MCH (27.0-32.0) pg MCHC (31.0-37.0) g/dL RDW Std Deviation (28.0-62.0) fl RDW Coeff of Mega (11.0-15.0) % Plt Count (150-400) K/uL MPV (7.40-12.00) fL Neut % (Auto) (48.0-80.0) % Lymph % (Auto) (16.0-40.0) % Murray % (Auto) (0.0-15.0) % Eos % (Auto) (0.0-7.0) % Baso % (Auto) (0.0-1.5) % Neut # (Auto) (1.4-5.7) K/uL Lymph # (Auto) (0.6-2.4) K/uL Murray # (Auto) (0.0-0.8) K/uL Eos # (Auto) (0.0-0.7) K/uL Baso # (Auto) (0.0-0.1) K/uL Nucleated RBC % /100WBC Nucleated RBCs # K/uL Sodium (136-145) mmol/L Potassium (3.5-5.1) mmol/L Chloride (98-107) mmol/L Carbon Dioxide (21.0-32.0) mmol/L BUN (7.0-18.0) mg/dL Creatinine (0.6-1.0) mg/dL Est Cr Clr Drug Dosing mL/min Estimated GFR (MDRD) ml/min Glucose (74-106) mg/dL Calcium (8.5-10.1) mg/dL Total Bilirubin (0.2-1.0) mg/dL AST (15-37) IU/L ALT (14-63) IU/L Alkaline Phosphatase (46-116) U/L Total Protein (6.4-8.2) g/dL Albumin (3.4-5.0) g/dL Globulin (2.6-4.0) g/dL Albumin/Globulin Ratio (0.9-1.6) HCG, Quant mIU/mL Urine Color YELLOW Urine Appearance CLOUDY Urine pH 5.5 (5.0-8.0) Ur Specific Lancaster 1.020 (1.001-1.035) Urine Protein NEGATIVE (NEGATIVE) mg/dL Urine Glucose (UA) NEGATIVE (NEGATIVE) mg/dL Urine Ketones NEGATIVE (NEGATIVE) mg/dL Urine Occult Blood LARGE H (NEGATIVE) Urine Nitrite NEGATIVE (NEGATIVE) Urine Bilirubin NEGATIVE (NEGATIVE) Urine Urobilinogen 0.2 (<2.0) EU/dL Ur Leukocyte Esterase NEGATIVE (NEGATIVE) Urine RBC 40-50 (0-2/HPF) Urine WBC 0-1 (0-5/HPF) Ur Epithelial Cells RARE (NONE-FEW) Urine Bacteria FEW (NEGATIVE) Blood Type Departure - Departure Time of Disposition: 14:17 Disposition: Home, Self-Care 01 Clinical Impression: Abnormal vaginal bleeding, Positive test - Discharge Information Instructions: Abnormal Uterine Bleeding Referrals: Fatou Castillo MD [Primary Care Provider] - Forms: ED Department Discharge Additional Instructions: The following information is given to patients seen in the emergency department who are being discharged to home. This information is to outline your options for follow-up care. We provide all patients seen in our emergency department with a follow-up referral. The need for follow-up, as well as the timing and circumstances, are variable depending upon the specifics of your emergency department visit. If you don't have a primary care physician on staff, we will provide you with a referral. We always advise you to contact your personal physician following an emergency department visit to inform them of the circumstance of the visit and for follow-up with them and/or the need for any referrals to a consulting specialist. The emergency department will also refer you to a specialist when appropriate. T his referral assures that you have the opportunity for follow-up care with a specialist. All of these measure are taken in an effort to provide you with optimal care, which includes your follow-up. Under all circumstances we always encourage you to contact your private physician who remains a resource for coordinating your care. When calling for follow-up care, please make the office aware that this follow-up is from your recent emergency room visit. If for any reason you are refused follow-up, please contact the Emergency Department at and asked to speak to the emergency department charge nurse. Primary Care [address] [place] [address] [facility] [address] [place] [address] [facility] [address] [place] [address] 1. Please start and/or continue to take your vitamin with folic acid once daily. 2. Pelvic rest until cleared by your OBGYN (no tampons, sex, etc...) 3. Tylenol as needed for pain management. This is safe to use in . 4. 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 Return to the ED as needed and as discussed. Sepsis Event Note (ED) - Evaluation Sepsis Screening Result: No Definite Risk - Focused Exam Vital Signs: Vital Signs Temp Pulse Resp BP Pulse Ox 02/18/21 14:46 78 153/89 H 95 02/18/21 12:45 93 131/81 97 02/18/21 11:55 99.6 F 109 H 18 152/91 H 97
[2021-02-18 14:47] VITALS: BP 153/89; PULSE 78
== END 2021-02-18 14:44 | disposition home or self-care (01) ==
LOC: MW.ED 11:19
DX: O20.9 Hemorrhage in early pregnancy, unspecified (principal); Z91.018 Allergy to other foods; Z3A.01 Less than 8 weeks gestation of pregnancy
CPT/HCPCS: 36415; 76801; 76801-26; 80053; 81001; 84702; 85025; 86900; 86901; 99284-25

== ENCOUNTER 2022-01-29 17:07 | Inpatient (IN) | payer OTHER ==
[2022-01-29] MEDS ORDERED: Carboprost Tromethamine 250 MCG/1 ML Amp IM PRN (17:11)
[2022-01-29] MEDS ORDERED: Tranexamic Acid 1,000 MG in Sodium Chloride 0.9% 100 ML IV PRN (17:11)
[2022-01-29] MEDS ORDERED: Water For Irrigation,Sterile 1,000 ML Container IRR PRN (17:11)
[2022-01-29] MEDS ORDERED: Sodium Chloride 0.9% 20 ML SDV IV PRN (17:11)
[2022-01-29] MEDS ORDERED: Sodium Chloride 0.9% 2.5 ML Syringe FLUSH PRN (17:11)
[2022-01-29] MEDS ORDERED: Methylergonovine 0.2 MG/1 ML Amp IM PRN (17:11)
[2022-01-29] MEDS ORDERED: Sodium Chloride 0.9% 10 ML Syringe FLUSH PRN (17:11)
[2022-01-29] MEDS ORDERED: Misoprostol 200 MCG Tab PO PRN (17:11)
[2022-01-29] MEDS ORDERED: Lidocaine 1% 50 ML MDV INJECT PRN (17:11)
[2022-01-29] MEDS ORDERED: Oxytocin/0.9 % Sodium Chloride 30 UNIT/500 ML BAG IV SCH ×2 (17:15→17:45)
[2022-01-29] MEDS ORDERED: Terbutaline 1 MG/ML SDV SUBCUT PRN (17:36)
[2022-01-29] MEDS ORDERED: Misoprostol 25 MCG (1/4 of 100 MCG) Tab VAG PRN (17:36)
[2022-01-29] MEDS ORDERED: Labetalol 100 MG/20 ML MDV IVPUSH PRN (18:08)
[2022-01-29] MEDS ORDERED: ePHEDrine 50 MG/ML SDV IVPUSH PRN ×2 (21:10)
[2022-01-29] MEDS ORDERED: Phenylephrine HCl In 0.9% NaCl 1 MG/10 ML Vial IVPUSH PRN (21:10)
[2022-01-29] MEDS: Labetalol 100 MG Tab PO SCH (21:15)
[2022-01-29] MEDS ORDERED: Ropivacaine HCl/PF 400 MG in Premix Bag 1 BAG EPIDUR SCH (21:15)
[2022-01-29] MEDS ORDERED: Phenylephrine HCl In 0.9% NaCl 1 MG/10 ML Vial IVPUSH SCH (21:15)
[2022-01-29] MEDS: Misoprostol 25 MCG (1/4 of 100 MCG) Tab VAG PRN (22:15)
[2022-01-30] MEDS: Misoprostol 25 MCG (1/4 of 100 MCG) Tab VAG PRN (02:05)
[2022-01-30] MEDS: Lactated Ringers 1,000 ML IV SCH ×4 (07:12→17:17)
[2022-01-30] MEDS: Labetalol 100 MG Tab PO SCH ×2 (09:29→21:21)
[2022-01-30] MEDS: Butorphanol 1 MG/ML SDV IVPUSH PRN ×2 (10:49→12:03)
[2022-01-30] MEDS ORDERED: Phenylephrine HCl In 0.9% NaCl 1 MG/10 ML Vial ONE (14:31)
[2022-01-30] MEDS ORDERED: Lidocaine 2% with EPINEPHrine 1:200,000 20 ML SDV ONE (14:31)
[2022-01-30] MEDS ORDERED: Acetaminophen 500 MG Tab PO PRN ×2 (21:19)
[2022-01-30] MEDS ORDERED: Docusate Sodium 100 MG Cap PO PRN (21:19)
[2022-01-30] MEDS ORDERED: Witch Hazel Medicated Pads 40/Jar TOP PRN (21:19)
[2022-01-30] MEDS ORDERED: Bisacodyl 10 MG Supp RECTAL PRN (21:19)
[2022-01-30] MEDS ORDERED: Lanolin 100% Cream 7 GM Tube TOP PRN (21:19)
[2022-01-30] MEDS ORDERED: Benzocaine/Menthol 20%-0.5% Spray 78 GM Cannister TOP PRN (21:19)
[2022-01-30] MEDS ORDERED: Ibuprofen 400 MG Tab PO PRN (21:19)
[2022-01-30] MEDS ORDERED: Ibuprofen 800 MG Tab PO PRN (21:19)
[2022-01-30] MEDS ORDERED: Tranexamic Acid 1,000 MG in Sodium Chloride 0.9% 100 ML IV PRN (21:19)
[2022-01-31] MEDS: Labetalol 100 MG Tab PO SCH ×2 (08:32→20:30)
[2022-02-01 08:48] VITALS: PULSE 89
[2022-02-01] MEDS: Labetalol 100 MG Tab PO SCH (08:48)
[2022-02-01 10:18] VITALS: BP 144/90
== END 2022-02-01 14:12 | disposition home or self-care (01) | DRG 807 ==
LOC: MW.OB 17:07 → MW.OBCHECK 17:07 → MW.OB 17:11 → OBSVTOIN 01-30 20:56 → MW.OB 01-30 23:53
PROVIDERS: ADMIT Obstetrics & Gynecology; ATTEND Obstetrics & Gynecology
PROC: 10D07Z6 Extraction of Products of Conception, Vacuum, Via Natural or Artificial Opening (ICD-10-PCS; principal; 2022-01-30)
PROC: 10907ZC Drainage of Amniotic Fluid, Therapeutic from Products of Conception, Via Natural or Artificial Opening (ICD-10-PCS; 2022-01-30)
PROC: 3E0P7VZ Introduction of Hormone into Female Reproductive, Via Natural or Artificial Opening (ICD-10-PCS; 2022-01-30)
PROC: 3E033VJ Introduction of Other Hormone into Peripheral Vein, Percutaneous Approach (ICD-10-PCS; 2022-01-30)
PROC: 0HQ9XZZ Repair Perineum Skin, External Approach (ICD-10-PCS; 2022-01-30)
PROC: 3E0R3BZ Introduction of Anesthetic Agent into Spinal Canal, Percutaneous Approach (ICD-10-PCS; 2022-01-30)
PROC: 00HU33Z Insertion of Infusion Device into Spinal Canal, Percutaneous Approach (ICD-10-PCS; 2022-01-30)
DX: O13.4 Gestational [pregnancy-induced] hypertension without significant proteinuria, complicating childbirth (principal); Z37.0 Single live birth; Z3A.37 37 weeks gestation of pregnancy; O70.0 First degree perineal laceration during delivery; O69.81X0 Labor and delivery complicated by cord around neck, without compression, not applicable or unspecified; O76 Abnormality in fetal heart rate and rhythm complicating labor and delivery; O77.0 Labor and delivery complicated by meconium in amniotic fluid
CPT/HCPCS: 36415; 51702; 59025; 59409; 82803; 85014; 85018; 85027; 86592; 86850; 86900; 86901; A9270-GY; J0595; J2590; J3490; J7120; U0002

== ENCOUNTER 2024-03-11 01:47 | Inpatient (IN) | payer OTHER ==
[2024-03-11] MEDS ORDERED: Carboprost Tromethamine 250 MCG/1 mL Vial IM PRN (05:48)
[2024-03-11] MEDS ORDERED: Butorphanol 2 MG/ML SDV IVPUSH PRN (05:48)
[2024-03-11] MEDS ORDERED: Lidocaine 1% 50 ML MDV INJECT PRN (05:48)
[2024-03-11] MEDS ORDERED: Sodium Chloride 0.9% 20 ML SDV IV PRN (05:48)
[2024-03-11] MEDS ORDERED: Sodium Chloride 0.9% 2.5 ML Syringe FLUSH PRN (05:48)
[2024-03-11] MEDS ORDERED: Misoprostol 200 MCG Tab PO PRN (05:48)
[2024-03-11] MEDS ORDERED: Methylergonovine 0.2 MG/1 ML Amp IM PRN (05:48)
[2024-03-11] MEDS ORDERED: Water For Irrigation,Sterile 1,000 ML Container IRR PRN (05:48)
[2024-03-11] MEDS ORDERED: Tranexamic Acid in NACL,ISO-OS 1,000 MG in Premix Bag 1 BAG IV PRN (05:48)
[2024-03-11] MEDS ORDERED: Sodium Chloride 0.9% 10 ML Syringe FLUSH PRN (05:48)
[2024-03-11] MEDS ORDERED: Misoprostol 100 MCG Tab RECTAL PRN (05:48)
[2024-03-11] MEDS ORDERED: Terbutaline 1 MG/ML SDV SUBCUT PRN (05:54)
[2024-03-11] MEDS ORDERED: Misoprostol 25 MCG (1/4 of 100 MCG) Tab VAG PRN (05:54)
[2024-03-11] MEDS ORDERED: Oxytocin/0.9 % Sodium Chloride 30 UNIT/500 ML BAG IV SCH (06:00)
[2024-03-11] MEDS: Misoprostol 25 MCG (1/4 of 100 MCG) Tab PO ONE (06:23)
[2024-03-11] MEDS: Misoprostol 25 MCG (1/4 of 100 MCG) Tab VAG PRN (06:23)
[2024-03-11 06:47] LABS: HEMATOCRIT 35.5 % (37.0-47.0); HEMOGLOBIN 12.4 g/dL (12.0-16.0); MEAN CORPUSCULAR HEMOGLOBIN 28.1 pg (28.0-32.0); MEAN CORPUSCULAR HGB CONC 34.9 g/dL (32.0-36.0); MEAN CORPUSCULAR VOLUME 80.5 fL (83.0-99.0); MEAN PLATELET VOLUME 10.5 fL (9.4-12.3); PLATELET COUNT,PLT 208 K/uL (150-400); RED BLOOD CELL COUNT 4.41 M/uL (4.10-5.30); WHITE BLOOD CELL COUNT,WBC 8.72 K/uL (3.9-11.3)
[2024-03-11 07:09] LABS: A/G RATIO 0.6 (0.9-1.6); ALBUMIN 2.4 g/dL (3.4-5.0); BILIRUBIN TOTAL 0.4 mg/dL (0.2-1.0); CALCIUM 9.1 mg/dL (8.5-10.1); CARBON DIOXIDE,CO2 20.3 mmol/L (21.0-32.0); CREATININE 0.7 mg/dL (0.6-1.0); EST CRCL DRUG DOSING (CG) 113.01 mL/min; POTASSIUM,K 3.4 mmol/L (3.5-5.1); PROTEIN TOTAL,TP 6.6 g/dL (6.4-8.2)
[2024-03-11] MEDS: Lactated Ringers 1,000 ML IV SCH (11:16)
[2024-03-11] MEDS: Oxytocin/0.9 % Sodium Chloride 30 UNIT/500 ML BAG IV SCH (11:20)
[2024-03-11] MEDS ORDERED: Bupivacaine 0.5% 10 ML SDV ONE (18:01)
[2024-03-11] MEDS ORDERED: Ropivacaine HCl/PF 200 ML ONE (18:01)
[2024-03-11] MEDS ORDERED: Phenylephrine HCl In 0.9% NaCl 1 MG/10 ML Syringe ONE (18:01)
[2024-03-11] MEDS ORDERED: ePHEDrine 50 MG/ML SDV IVPUSH PRN (18:33)
[2024-03-11] MEDS ORDERED: Bupivacaine 0.5% 10 ML SDV INJECT ONE (18:33)
[2024-03-11] MEDS ORDERED: ePHEDrine 50 MG/ML SDV IM PRN (18:33)
[2024-03-11] MEDS ORDERED: dexmedeTOMIDine HCl 200 MCG/2 ML SDV EPIDUR SCH (18:45)
[2024-03-11] MEDS ORDERED: Ropivacaine HCl/PF 400 MG in Premix Bag 1 BAG EPIDUR SCH (18:45)
[2024-03-11] MEDS: Ondansetron 4 MG/2 ML SDV IVPUSH PRN (19:24)
[2024-03-11] MEDS: Phenylephrine HCl In 0.9% NaCl 1 MG/10 ML Syringe IVPUSH PRN (19:24)
[2024-03-12] MEDS ORDERED: Docusate Sodium 100 MG Cap PO PRN (02:06)
[2024-03-12] MEDS ORDERED: Oxytocin 10 Units/1 ML SDV IM PRN (02:06)
[2024-03-12 02:35] LABS: PH,UMBILICAL ARTERIAL 7.184 (7.18-7.38); PH,UMBILICAL VENOUS 7.263 (7.25-7.45)
[2024-03-12] MEDS: Benzocaine/Menthol 20%-0.5% Spray 78 GM Cannister TOP PRN (04:10)
[2024-03-12] MEDS: Witch Hazel Medicated Pads 40/Jar TOP PRN (04:10)
[2024-03-12] MEDS: Lanolin 100% Cream 7 GM Tube TOP PRN (04:11)
[2024-03-12 06:19] LABS: BASOPHILS ABSOLUTE AUTO 0.02 K/uL (0.00-0.20); BASOPHILS PERCENT AUTO 0.2 % (0.0-1.0); EOSINOPHILS ABSOLUTE AUTO 0.02 K/uL (0.00-0.45); EOSINOPHILS PERCENT AUTO 0.2 % (0.0-6.0); HEMATOCRIT 33.8 % (37.0-47.0); HEMOGLOBIN 11.6 g/dL (12.0-16.0); IMMATURE GRAN ABSOLUTE AUTO 0.07 K/uL (0.00-0.05); IMMATURE GRAN PERCENT AUTO 0.5 % (0.0-0.4); LYMPHOCYTES ABSOLUTE AUTO 1.49 K/uL (1.00-4.80); LYMPHOCYTES PERCENT AUTO 11.4 % (24.0-44.0); MEAN CORPUSCULAR HEMOGLOBIN 27.6 pg (28.0-32.0); MEAN CORPUSCULAR HGB CONC 34.3 g/dL (32.0-36.0); MEAN CORPUSCULAR VOLUME 80.5 fL (83.0-99.0); MEAN PLATELET VOLUME 10.2 fL (9.4-12.3); MONOCYTES ABSOLUTE AUTO 0.77 K/uL (0.00-0.80); MONOCYTES PERCENT AUTO 5.9 % (0.0-8.0); NEUTROPHILS ABSOLUTE AUTO 10.69 K/uL (1.80-7.70); NEUTROPHILS PERCENT AUTO 81.8 % (41.0-71.0); PLATELET COUNT,PLT 203 K/uL (150-400); WHITE BLOOD CELL COUNT,WBC 13.06 K/uL (3.9-11.3)
[2024-03-12 06:46] LABS: A/G RATIO 0.6 (0.9-1.6); ALBUMIN 2.1 g/dL (3.4-5.0); BILIRUBIN TOTAL 0.4 mg/dL (0.2-1.0); CARBON DIOXIDE,CO2 22.1 mmol/L (21.0-32.0); CREATININE 0.8 mg/dL (0.6-1.0); EST CRCL DRUG DOSING (CG) 98.88 mL/min; POTASSIUM,K 3.6 mmol/L (3.5-5.1); PROTEIN TOTAL,TP 5.9 g/dL (6.4-8.2)
[2024-03-12] MEDS: Ibuprofen 800 MG Tab PO PRN (08:01)
[2024-03-12] MEDS: Acetaminophen 500 MG Tab PO PRN (17:30)
[2024-03-13] MEDS: NIFEdipine 30 MG Tab.ER PO SCH (13:34)
[2024-03-13 13:47] LABS: HEMATOCRIT 35.5 % (37.0-47.0); MEAN CORPUSCULAR HGB CONC 33.8 g/dL (32.0-36.0); MEAN CORPUSCULAR VOLUME 82.8 fL (83.0-99.0); MEAN PLATELET VOLUME 10.3 fL (9.4-12.3); PLATELET COUNT,PLT 219 K/uL (150-400); RED BLOOD CELL COUNT 4.29 M/uL (4.10-5.30); WHITE BLOOD CELL COUNT,WBC 9.92 K/uL (3.9-11.3)
[2024-03-13 14:10] LABS: A/G RATIO 0.6 (0.9-1.6); ALBUMIN 2.3 g/dL (3.4-5.0); BILIRUBIN TOTAL 0.2 mg/dL (0.2-1.0); CALCIUM 8.7 mg/dL (8.5-10.1); CARBON DIOXIDE,CO2 26.8 mmol/L (21.0-32.0); CREATININE 0.7 mg/dL (0.6-1.0); EST CRCL DRUG DOSING (CG) 113.01 mL/min; POTASSIUM,K 3.7 mmol/L (3.5-5.1); PROTEIN TOTAL,TP 6.3 g/dL (6.4-8.2)
[2024-03-13 15:33] VITALS: BP 135/91
[2024-03-13 16:08] VITALS: PULSE 91
== END 2024-03-13 16:34 | disposition home or self-care (01) | DRG 807 ==
LOC: MW.OB 01:47 → OBSVTOIN 03-12 01:47 → MW.OB 03-12 04:44
PROVIDERS: ADMIT Obstetrics & Gynecology; ATTEND Obstetrics & Gynecology
PROC: 10E0XZZ Delivery of Products of Conception, External Approach (ICD-10-PCS; principal; 2024-03-12)
PROC: 0HQ9XZZ Repair Perineum Skin, External Approach (ICD-10-PCS; 2024-03-12)
PROC: 3E0R3BZ Introduction of Anesthetic Agent into Spinal Canal, Percutaneous Approach (ICD-10-PCS; 2024-03-12)
PROC: 00HU33Z Insertion of Infusion Device into Spinal Canal, Percutaneous Approach (ICD-10-PCS; 2024-03-12)
PROC: 3E033VJ Introduction of Other Hormone into Peripheral Vein, Percutaneous Approach (ICD-10-PCS; 2024-03-12)
DX: O14.94 Unspecified pre-eclampsia, complicating childbirth (principal); Z37.0 Single live birth; O70.0 First degree perineal laceration during delivery; O76 Abnormality in fetal heart rate and rhythm complicating labor and delivery; O64.0XX0 Obstructed labor due to incomplete rotation of fetal head, not applicable or unspecified; O99.214 Obesity complicating childbirth; O99.284 Endocrine, nutritional and metabolic diseases complicating childbirth; E87.6 Hypokalemia; O69.1XX0 Labor and delivery complicated by cord around neck, with compression, not applicable or unspecified; Z3A.37 37 weeks gestation of pregnancy
CPT/HCPCS: 01967; 36415; 51702; 59025; 59409; 80053; 82803; 85025; 85027; 86592; 86850; 86900; 86901; A9270-GY; J0665; J2371; J2405; J2590; J2795; J7120